=== PATIENT | male | born 1985 | race Hispanic/Latino ===

== ENCOUNTER 2021-06-24 07:39 | Emergency (ER) | payer OTHER, SELFPAY ==
[2021-06-24 07:41] VITALS: BP 121/70; PULSE 68; RESP 18; TEMP 36.9; O2SAT 99; BMI 28.3
--- NOTE | 2021-06-24 07:51 | ED_ITS ---
HPI - Extremity Problem General Chief complaint: Extremity Injury, Upper Stated complaint: Shoulder Injury at work Time Seen by Provider: 06/24/21 07:51 Source: patient Mode of arrival: Ambulatory History of Present Illness HPI Narrative: This is a 36-year-old male who works at [employer]. Patient states he slipped and his arm went up above his head any heard a crack in his shoulder. He states it feels like the area is moving the bone is sort of moving back and forth particularly at the AC joint. Patient has pain just localized to that region. He does describe some paresthesias numbness/tingling down his arm. He does not have any decreased movement in his hand wrist or forearm and he is able to lift his arm. Denies any decrease in strength. Patient states this happened today. He has not had any prior injuries. He denies any medical issues otherwise. He denies any other injuries. He did not hit his, he denies any neck or back pain. Patient had not taken anything for pain prior to arrival. He does not take any prescription medications. No known drug allergies. He does have an L& I form with him. Related Data Previous Rx's Medication Instructions Recorded betamethasone dipropionate 0.05 % 1 applictn TOP BID #1 tube 04/25/19 topical cream Allergies Allergy/AdvReac Type Severity Reaction Status Date / Time No Known Drug Allergies Allergy Unverified 04/25/19 13:27 Review of Systems Review of Systems ROS Unobtainable: All systems reviewed & are unremarkable except as noted in HPI and below Patient History Medical History (Updated 06/24/21 @ 08:36 by Deandra Astudillo DO) Psoriasis Exam Narrative Exam Narrative: GEN: Patient appears in male distress. HEAD: No evidence of trauma, no raccoon/Ramon sign. NECK: Nontender, painless range of motion, trachea midline Negative Nexus criteria, there is no midline line tenderness, distracting injury, altered mental status, neuro deficit, recent EtOH. EYES: PERRLA, EOMI ENT: External inspection normal, trachea is midline, TM's are normal no hemotypanum, airway is normal and with normal occlusion, No bony tenderness RESP: Chest is nontender and has symmetric movement, no ecchymosis, breath sounds are normal no crackles, wheezes or rales CVS: Heart sounds are normal, no murmur noted, No JVD. ABG/GI: Nontender, soft, normal bowel sounds, no distention, no organomegaly NEURO: Oriented AOx3, neuro is grossly intact, sensation and motor is normal all 4 extremities moving, cranial nerves II through XII are intact, GCS is 15. Normal gait. PSYCH: Normal mood and affect SKIN: Intact, warm and dry, no crepitus and without decubitus BACK: No CVA tenderness, no vertebral tenderness, no step-off's, no crepitus EXT: Patient has mild tenderness over the right shoulder. No obvious deformity. Patient is able to 82 and abduct his arm as well as flex and extend but does have discomfort more at the AC joint upper clavicle. 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 Normal sensation to touch but does describe paresthesias. 2+ radial pulses bilaterally. No ecchymosis, bruising swelling or warmth or erythema. Initial Vital Signs Initial Vital Signs: Vital Signs Temperature 98.5 F 06/24/21 07:41 Pulse Rate 68 06/24/21 07:41 Respiratory Rate 18 06/24/21 07:41 Blood Pressure 121/70 06/24/21 07:41 Pulse Oximetry 99 06/24/21 07:41 Course Orders Ordered: ED Orders 06/24/21 07:51 XR shoulder RT min 2V Stat Discontinued Medications Ibuprofen (Ibuprofen 400 Mg Tablet) 800 mg PO NOW ONE Stop: 06/24/21 08:01 Last Admin: 06/24/21 08:04 Dose: 800 mg Documented by: RAMAKRISHNA Vital Signs Vital signs: Vital Signs - 8 hr 06/24/21 07:41 06/24/21 07:56 06/24/21 08:50 Temperature 98.5 F Pulse Rate 68 65 Pulse Rate [Right Radial] 63 Respiratory Rate 18 18 Blood Pressure 121/70 120/70 Pulse Oximetry 99 99 MDM - Extremity (Nontraumatic) Imaging Data Extremity x-ray #1: Radiologist's Impression: [address] [id number] ReportSigned Patient: Aly Cooper JMR#: [id number]: 1985Acct:[id number]/Sex: 36 / MDate of Service: 06/24/21Loc: EDAccession Number: [id number]? ? Procedure: XR shoulder RT min 2V Ordering Provider: Deandra Astudillo D.O. PROCEDURE:? XR SHOULDER RT MIN 2V ? INDICATIONS:? right shoulder injury ? TECHNIQUE:? 3 views of the shoulder were acquired.? ? COMPARISON:? None. ? FINDINGS:? ? Bones:? No fractures or dislocations.? No suspicious bony lesions.? Visualized ribs appear intact.? Coracoclavicular and acromioclavicular intervals are maintained.? Small oval sclerotic focus in the right humeral head compatible with a bone island. ? Soft tissues:? No suspicious soft tissue calcifications.? Visualized portions of the lungs are clear. ? IMPRESSION:? Right shoulder without acute fracture or dislocation. ? ? Dictated by: Tristan Barnes M.D. on 06/24/2021 at 8:20? ?? Approved by: Tristan Barnes M.D. on 06/24/2021 at 8:23?? Discharge Plan Departure Patient Disposition: Home Clinical Impression: Injury of right shoulder, Shoulder sprain Instructions: Shoulder Sprain Activity Restrictions/Additional Instructions: Your imaging today does not show any fractures or breaks to the bone or dislocation. You can still have injury to the tendons or ligaments. If your symptoms resolve in the next week and you are able to move her arm without pain you may resume your normal work. You may take ibuprofen up to 600 mg every 6 hours and/or Tylenol up to a 1000 mg every 8 hours. You may use ice to the affected area once hourly as needed. You can use a sling if it improves your symptoms but this is not required. Make sure to rotate your shoulder regularly when using the sling to prevent frozen shoulder. If you continue to have symptoms please follow-up with the L and I physician or orthopedic surgery. Referral is included below. 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 Prescriptions: No Action betamethasone dipropionate 0.05 % cream 1 applictn TOP BID Qty: 1 0RF Referrals: Leslie Aranda MD [Physician] -
--- NOTE | 2021-06-24 07:51 | DI.RAD.S_ITS ---
PROCEDURE: XR SHOULDER RT MIN 2V INDICATIONS: right shoulder injury TECHNIQUE: 3 views of the shoulder were acquired. COMPARISON: None. FINDINGS: Bones: No fractures or dislocations. No suspicious bony lesions. Visualized ribs appear intact. Coracoclavicular and acromioclavicular intervals are maintained. Small oval sclerotic focus in the right humeral head compatible with a bone island. Soft tissues: No suspicious soft tissue calcifications. Visualized portions of the lungs are clear. IMPRESSION: Right shoulder without acute fracture or dislocation. Dictated by: Tristan Barnes M.D. on 06/24/2021 at 8:20 Approved by: Tristan Barnes M.D. on 06/24/2021 at 8:23
[2021-06-24 07:56] VITALS: PULSE 63
[2021-06-24] MEDS: IBUPROFEN 400 MG TABLET 800 MG PO (08:04)
[2021-06-24 08:50] VITALS: BP 120/70; PULSE 65; RESP 18; O2SAT 99
== END 2021-06-24 08:50 | disposition home or self-care (01) ==
PROVIDERS: Emergency Provider Emergency Medicine
DX: S43.401A Unspecified sprain of right shoulder joint, initial encounter (principal); W01.0XXA Fall on same level from slipping, tripping and stumbling without subsequent striking against object, initial encounter; Y99.0 Civilian activity done for income or pay
CPT/HCPCS: 73030; 99283